=== PATIENT | male | born 2000 | race Caucasian/White ===

== ENCOUNTER 2018-09-08 13:12 | Emergency (ER) | payer OTHER ==
[2018-09-08 13:28] VITALS: BP 144/86
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
== END 2018-09-08 14:10 | disposition home or self-care (01) ==
LOC: CED 13:12
DX: S39.93XA Unspecified injury of pelvis, initial encounter (principal); V18.4XXA Pedal cycle driver injured in noncollision transport accident in traffic accident, initial encounter; Y93.55 Activity, bike riding; Y92.9 Unspecified place or not applicable; Y93.9 Activity, unspecified
CPT/HCPCS: 99282-ER